=== PATIENT | male | born 1955 | race Caucasian/White ===

== ENCOUNTER 2021-08-11 01:55 | Day surgery (SDC) | payer OTHER, SELFPAY ==
[2021-07-29 10:53] VITALS: BMI 27.5
[2021-08-11 08:25] VITALS: BMI 26.2
[2021-08-11 08:29] VITALS: BP 141/72; PULSE 83; RESP 18; TEMP 36.1; O2SAT 98
[2021-08-11] MEDS: LACTATED RINGERS 1,000 ML 150 ML IV CONT (08:40)
--- NOTE | 2021-08-11 08:49 | WPDANESEPPF ---
Anes - Initial Pre Proc Eval Procedure: Operation Date: 08/11/21 09:30 Proposed Procedures p Screening Colonoscopy - Williams Quinones MD Date/Time: 08/11/21 08:49 Surgeon: Williams Quinones MD Pre Op Diagnosis: neoplasm screening Patient Data Age: 66 Gender: M Height: 1.68 m Weight: 73.8 kg Last Vital Signs Temp 97 F L 08/11/21 08:29 Pulse 83 08/11/21 08:29 Resp 18 08/11/21 08:29 BP 141/72 H 08/11/21 08:29 Pulse Ox 98 08/11/21 08:29 Allergies Allergy/AdvReac Type Severity Reaction Status Date / Time No Known Allergies Allergy Verified 08/11/21 08:24 Home Medications Medication Instructions Recorded Confirmed Type amlodipine 10 mg PO DAILY 07/29/21 08/11/21 History atorvastatin 20 mg PO DAILY 07/29/21 08/11/21 History ezetimibe 10 mg PO DAILY 07/29/21 08/11/21 History fluticasone propion-salmeterol 1 inh INHALATION Q12H 07/29/21 08/11/21 History [Advair Diskus] icosapent ethyl 2 g PO BID 07/29/21 08/11/21 History metoprolol tartrate 100 mg PO DAILY 07/29/21 08/11/21 History Patient hx anesthesia problems: none Family hx anesthesia problems: none Results Review: All pre-operative results and documents have been reviewed as part of the pre-operative evaluation. [facility] Past Medical History Medical History (Updated 08/11/21 @ 08:45 by Ha Mir MD) Hyperlipidemia Hypertension Social History Social History Smoking packs per day: 0.5 Smoking cigarettes per day: 10.0 Years smoked: 30 Smoking pack-years: 15.00 Smoking status: Current every day smoker Tobacco type: cigarettes Alcohol intake: current Substance use type: marijuana Other substance usage details: edibles, doesn't use often Living arrangements: with family Spiritual care concerns: No Anes - Eval Final PreProcedure Day of Procedure 08/11/21 08:49 Patient weight: overweight Heart: regular rate and rhythm Lungs: clear to auscultation Airway: Mallampati scale class II Neurological: alert and oriented Last oral intake: >/= 8 hours ASA classification: III Emergent: no Anesthetic plan: proceed Anesthesia type and monitoring: general GIVS and standard monitoring Results Review: All pre-operative results and documents have been reviewed as part of the pre-operative evaluation. Informed Consent: The patient's anesthetic plan and its attendant risks and benefits were discussed with the patient/family/POA. Questions were solicited and answers provided to the satisfaction of the patient/family/POA.
--- NOTE | 2021-08-11 08:52 | PM.HPGS ---
History of Present Illness History of Present Illness Consent: Risks, benefits, and alternatives have been discussed and questions answered. Patient agrees to proceed with procedure. Chief complaint: neoplasm screening Narrative: Clark Silveira is a 66 year old male with a history of colon polyps Review of Systems Review of Systems: All systems reviewed & are unremarkable except as noted in HPI and below PMFSH Past Medical History Medical History Hyperlipidemia Hypertension Social History Social History Smoking packs per day: 0.5 Smoking cigarettes per day: 10.0 Years smoked: 30 Smoking pack-years: 15.00 Smoking status: Current every day smoker Tobacco type: cigarettes Alcohol intake: current Substance use type: marijuana Other substance usage details: edibles, doesn't use often Living arrangements: with family Spiritual care concerns: No Meds Home Medications and Allergies Home Medications Medication Instructions Recorded Confirmed Type amlodipine 10 mg PO DAILY 07/29/21 08/11/21 History atorvastatin 20 mg PO DAILY 07/29/21 08/11/21 History ezetimibe 10 mg PO DAILY 07/29/21 08/11/21 History fluticasone propion-salmeterol 1 inh INHALATION Q12H 07/29/21 08/11/21 History [Advair Diskus] icosapent ethyl 2 g PO BID 07/29/21 08/11/21 History metoprolol tartrate 100 mg PO DAILY 07/29/21 08/11/21 History Allergies Allergy/AdvReac Type Severity Reaction Status Date / Time No Known Allergies Allergy Verified 08/11/21 08:24 Vital Signs Vital Signs - 24 hr 08/11/21 08:29 Temperature 36.1 C L Pulse Rate 83 Respiratory Rate 18 Blood Pressure 141/72 H Pulse Oximetry 98 Exam Resp: Auscultation: clear to auscultation bilaterally Cardio: Rate: regular rate Rhythm: regular rhythm GI: GI Palp: Yes Soft to palpation and No Tenderness to palpation present (GI) Assessment and Plan Assessment and plan (1) Colon cancer screening: Code(s): Z12.11 - Encounter for screening for malignant neoplasm of colon Status: Acute Assessment and Plan: Colonoscopy with possible biopsy or polypectomy or cautery or injection of substances.
--- NOTE | 2021-08-11 09:19 | SUR.OPER ---
Resolution Clip Lot: [id number] Exp: 2024-05-18
[2021-08-11 09:28] VITALS: BP 109/63; PULSE 75; RESP 17; O2SAT 98
[2021-08-11 09:38] VITALS: BP 126/80; PULSE 80; RESP 17; O2SAT 98
[2021-08-11 09:48] VITALS: BP 145/76; PULSE 74; RESP 22; O2SAT 98
== END 2021-08-11 09:58 | disposition home or self-care (01) ==
PROVIDERS: PCP Family Medicine Sports Medicine; Visit Provider Internal Medicine Gastroenterology
PROC: 0DJD8ZZ Inspection of Lower Intestinal Tract, Via Natural or Artificial Opening Endoscopic (ICD-10-PCS; CPT 45378; principal; 2021-08-11 09:30)
DX: Z12.11 Encounter for screening for malignant neoplasm of colon (principal); D12.2 Benign neoplasm of ascending colon; K62.1 Rectal polyp; K57.30 Diverticulosis of large intestine without perforation or abscess without bleeding; I10 Essential (primary) hypertension; E78.5 Hyperlipidemia, unspecified; F17.210 Nicotine dependence, cigarettes, uncomplicated; F12.90 Cannabis use, unspecified, uncomplicated
CPT/HCPCS: 45380; 45385; 88305; J2704; J7120